=== PATIENT | male | born 2000 | race Caucasian/White ===

== ENCOUNTER 2018-07-04 15:01 | Emergency (ER) | payer BC ==
[2018-07-04 15:11] VITALS: BP 126/78; PULSE 84; RESP 18; TEMP 98.3
[2018-07-04] MEDS ORDERED: DIPH,PERTUS(ACELL)TETVAC-LF 0.5 ML VIAL IM ONE (15:15)
[2018-07-04] MEDS ORDERED: LIDOCAINE 1% INJ 10MG/ML (20 ML MDV) SQ STA (15:28)
--- NOTE | 2018-07-04 15:44 | ED ---
General Adult HPI - General Chief complaint: Wound/Laceration Stated complaint: right hand laceration Time Seen by Provider: 07/04/18 15:10 Source: patient, RN notes reviewed, old records reviewed Mode of arrival: ambulatory Limitations: no limitations - History of Present Illness Initial comments: 18-year-old male patient with no pertinent past medical history presents to ED after sustaining a laceration to his fourth and fifth digits of his palmar L hand distal to the MCP joint. Patient reports that this laceration occurred on a piece of metal while working on the brakes on his car. Patient has 2 lacerations on the palmar aspect of the fourth and fifth digits distal to the MCP joint, the laceration on his 4th digit is approximately .5 cm, superficial. The laceration on his 5th digit is approximately 2cm. Patient denies any other injury or complaint. Patient states that last tetanus shot was 6 years ago. Systemic: Pt denies fatigue, myalgia, fever/chills, rash. Pt denies weakness, night sweats, weight loss. Neuro: Pt denies headache, visual disturbances, syncope or pre-syncope. HEENT: Pt denies ocular discharge or irritation, otalgia, rhinorrhea, pharyngitis or notable lymphadenopathy. Cardiopulmonary: Pt denies chest pain, SOB, heart palpitations, dyspnea on exertion. Abdominal/GI: Pt denies abdominal pain, n/v/d. : Pt denies dysuria, burning w/ urination, frequency/urgency. Denies new onset urinary or bowel incontinence. MSK: Pt denies myalgia, loss of strength or function in extremities. Neuro: Pt denies new onset weakness, paresthesias. 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 ROS Other: All systems not noted in ROS Statement are negative. Past Medical History Past Medical History: No Reported History History of Any Multi-Drug Resistant Organisms: None Reported Past Surgical History: No Surgical Hx Reported Past Psychological History: No Psychological Hx Reported Smoking Status: Current every day smoker Past Alcohol Use History: None Reported Past Drug Use History: Marijuana General Exam - General Exam Comments Initial Comments: Constitutional: NAD, AOX3, Pt has pleasant affect. HEENT: NC/AT, trachea midline, neck supple, no lymphadenopathy. Posterior pharynx non erythematous, without exudates. External ears appear normal, without discharge. Mucous membranes moist. Eyes PERRLA, EOM intact. There is no scleral icterus. No pallor noted. Cardiopulmonary: RRR, no murmurs, rubs or gallops, no JVD noted. Lungs CTAB in anterior and posterior gorman. No peripheral edema. Abdominal exam: Abdomen soft and non-distended. Abdomen non-tender to palpation in all 4 quadrants. Bowel sounds active in LLQ. No hepatosplenomegaly. No ecchymosis Neuro: CN II-XII grossly intact. No nuchal rigidity. MSK: two lacerations noted on palmar aspect of left hand. 0.5 centimeter laceration on palmar aspect of left fourth digit distal to MCP, superficial. 2 cm laceration to palmar aspect of fifth digit on left hand distal to MCP joint, mildly superficial but requiring closure. No posterior calf tenderness bilaterally, homans sign negative bilaterally. Posterior tibialis and radial pulse +2 bilaterally. Sensation intact in upper and lower extremities. Full active ROM in upper and lower extremities, 5/5 stregnth. Limitations: no limitations Course Vital Signs 07/04/18 15:07 Temperature 98.3 F Pulse Rate 84 Respiratory 18 Rate Blood Pressure 126/78 O2 Sat by Pulse 100 Oximetry Procedures - Laceration Laceration #1 Consent Obtained: verbal consent Indication: laceration Site: hand (5th digit on L hand ) Size (cm): 2 Description: linear Depth: simple, single layer Anesthetic Used: lidocaine 1% Anesthesia Technique: local infiltration Amount (mls): 2 Pre-repair: wound explored, irrigated extensively (1 L of NS), deep structures intact Type of Sutures: nylon Size of Sutures: 5-0 Number of Sutures: 4 Technique: simple, interrupted Patient Tolerated Procedure: well, no complications Laceration #2 Consent Obtained: verbal consent Time Out Performed: Yes Site: hand (4th digit L hand ) Size (cm): 1 (0.5 cm ) Description: linear Depth: simple, single layer Pre-repair: wound explored, irrigated extensively (1L NS), deep structures intact Type of Sutures: other (exofin ) Patient Tolerated Procedure: well, no complications Medical Decision Making - Medical Decision Making 18-year-old male patient with no pertinent past medical history presents to ED after sustaining a laceration to his fourth and fifth digits of his palmar L hand distal to the MCP joint. Patient reports that this laceration occurred on a piece of metal while working on the brakes on his car. Pt VSS, afebrile. Physical exam displayed: two lacerations noted on palmar aspect of left hand. 0.5 centimeter laceration on palmar aspect of left fourth digit distal to MCP, superficial. 2 cm laceration to palmar aspect of fifth digit on left hand distal to MCP joint, mildly superficial but requiring closure. Both wounds vigorously irrigated with 1L of normal saline. Laceration on 4th digit was closed with exofin glue. Wound on 5th digit was closed with 4 simple interrupted sutures. Pt rx 3 days of prophylactic keflex. Pt educated extensively intensive symptoms of infection, pt verbalized understanding. Patient to return to ED immediately if s/sx of infection develop, new signs symptoms develop, or if condition worsens in any way. Patient follow up with PCP in 1-2 days. Patient to return to ED in 7-10 days for suture removal. Case discussed with Dr. Cherry. Tetanus updated. Disposition Clinical Impression: Laceration Disposition: HOME SELF-CARE Condition: Stable Instructions: Care For Your Stitches (ED), Laceration (ED) Additional Instructions: Patient to adhere to previously discussed treatment plan and will take medication(s) as directed. Patient to follow up with PCP in 1-2 days. Patient to return to ED if symptoms do not improve. Prescriptions: Cephalexin [Keflex] 500 mg PO Q12HR 3 Days #6 cap Is patient prescribed a controlled substance at d/c from ED?: No Referrals: Feliz Rodgers MD [Primary Care Provider] - 1-2 days Time of Disposition: 15:51
[2018-07-04] MEDS ORDERED: TOPICAL SKIN ADHESIVE 1 EACH AMP TOPICAL ONE (16:18)
== END 2018-07-04 16:38 | disposition home or self-care (01) ==
LOC: EC 15:01
DX: S61.215A Laceration without foreign body of left ring finger without damage to nail, initial encounter (principal); S61.211A Laceration without foreign body of left index finger without damage to nail, initial encounter; Z23 Encounter for immunization; F17.200 Nicotine dependence, unspecified, uncomplicated; Z91.018 Allergy to other foods; W26.8XXA Contact with other sharp object(s), not elsewhere classified, initial encounter
CPT/HCPCS: 90715; 99283; 12002; 90471; J2001

== ENCOUNTER → 2018-09-09 | Outpatient (CLI) | payer OTHER ==
--- NOTE | 2018-09-09 13:54 | XR ---
EXAMINATION TYPE: XR hand complete RT DATE OF EXAM: 09/09/2018 CLINICAL HISTORY: Injury with pain. TECHNIQUE: Frontal, lateral and oblique images of the right hand are obtained. COMPARISON: None. FINDINGS: There is no acute fracture/dislocation evident in the right hand. The joint spaces in the right hand appear within normal limits. The overlying soft tissue appears unremarkable without suspi cious metallic or radiodense foreign body identified. IMPRESSION: There is no acute fracture or dislocation in the right hand.
== END | disposition home or self-care (01) ==
LOC: RADXRMAIN 13:34
PROVIDERS: ATTEND Emergency Medicine
DX: S61.200A Unspecified open wound of right index finger without damage to nail, initial encounter (principal); S61.202A Unspecified open wound of right middle finger without damage to nail, initial encounter; S61.221A Laceration with foreign body of left index finger without damage to nail, initial encounter

== ENCOUNTER 2019-06-10 14:50 | Emergency (ER) | payer BC ==
[2019-06-10 15:01] VITALS: TEMP 98.3
--- NOTE | 2019-06-10 15:25 | ED ---
General Adult HPI - General Chief complaint: Upper Respiratory Infection Stated complaint: Cough Time Seen by Provider: 06/10/19 15:05 Source: patient Mode of arrival: ambulatory Limitations: no limitations - History of Present Illness Initial comments: Patient presents the ED with his mother for evaluation. Patient states that he has had a cough productive of dark colored sputum for the past week or so. Patient states that his productive cough seems to be worse in the morning. Patient states that he has been around other people who have been sick recently. Patient states that he "vapes" nicotine, but he denies vaping anything else. Patient denies having any pain, fever or chills, headache, sore throat, chest pain, dyspnea, palpitations, dizziness, abdominal pain, nausea/vomiting, urinary symptoms, leg or calf swelling or pain, or any other symptoms or complaints. 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 ROS Other: All systems not noted in ROS Statement are negative. Past Medical History Past Medical History: No Reported History History of Any Multi-Drug Resistant Organisms: None Reported Past Surgical History: No Surgical Hx Reported Past Psychological History: No Psychological Hx Reported Smoking Status: Never smoker Past Alcohol Use History: Rare Past Drug Use History: Marijuana General Exam Limitations: no limitations General appearance: alert, in no apparent distress Head exam: Present: atraumatic, normocephalic Eye exam: Present: normal appearance, EOMI ENT exam: Present: normal oropharynx, mucous membranes moist Neck exam: Present: other (Trachea is in midline) Respiratory exam: Present: normal lung sounds bilaterally. Absent: respiratory distress, wheezes, rales, rhonchi Cardiovascular Exam: Present: regular rate, normal rhythm, normal heart sounds, other (Normal radial pulses bilaterally) GI/Abdominal exam: Present: soft. Absent: distended, tenderness Extremities exam: Absent: tenderness, pedal edema, calf tenderness Neurological exam: Present: alert, oriented X3. Absent: motor sensory deficit Psychiatric exam: Present: normal affect, normal mood Skin exam: Present: warm, dry, intact, normal color Course Vital Signs 06/10/19 06/10/19 06/10/19 14:59 15:29 15:31 Temperature 98.3 F 98.3 F Pulse Rate 81 82 Respiratory 18 19 16 Rate Blood Pressure 119/76 119/84 O2 Sat by Pulse 98 99 Oximetry Medical Decision Making - Medical Decision Making Patient remains alert and breathing comfortably with clear breath sounds bilaterally and a normal room air oxygen saturation. Patient is afebrile. Alicia ent's chest x-ray is unremarkable. I suspect that the patient's symptoms may be secondary to a viral URI, and I do not suspect that they are from an emergent medical condition. Patient was instructed to stop vaping. Patient and mother were counseled about upper respiratory infections, and they both feel comfortable with the patient going home at this time. Patient was clearly explained return and follow-up instructions, and he was instructed to follow up closely with his primary care provider. - Radiology Data Radiology results: image reviewed (Chest x-ray is negative) Disposition Clinical Impression: Upper respiratory tract infection Disposition: HOME SELF-CARE Condition: Stable Instructions (If sedation given, give patient instructions): Upper Respiratory Infection (ED) Additional Instructions: Return to the ER immediately should you develop shortness of breath, chest pain, a high fever, vomiting, feeling dizzy or faint, or new or worsening symptoms. Follow up closely with your primary care provider. Is patient prescribed a controlled substance at d/c from ED?: No Referrals: Feliz Rodgers MD [Primary Care Provider] - 1-2 days Time of Disposition: 16:41
--- NOTE | 2019-06-10 16:08 | XR ---
EXAMINATION TYPE: XR chest 2V DATE OF EXAM: 06/10/2019 COMPARISON: None HISTORY: Cough TECHNIQUE: 2 views FINDINGS: Heart and mediastinum are normal. Lungs are clear. Diaphragm is normal. Bony thorax appears normal. IMPRESSION: Normal chest.
[2019-06-10 17:03] VITALS: BP 114/80; PULSE 63; RESP 15
== END 2019-06-10 17:03 | disposition home or self-care (01) ==
LOC: EC 14:50
DX: J06.9 Acute upper respiratory infection, unspecified (principal); Z91.018 Allergy to other foods; Z88.8 Allergy status to other drugs, medicaments and biological substances
CPT/HCPCS: 71046; 99283